=== PATIENT | female | born 1980 | race Caucasian/White ===

== ENCOUNTER 2017-06-25 10:04 | Emergency (ER) | payer SELFPAY ==
[2017-06-25] MEDS ORDERED: IBUP600T16 PO (10:23)
[2017-06-25 10:27] VITALS: BP 131/86
--- NOTE | 2017-06-25 10:29 | ED.ADGEN ---
Past History Past Medical History: Kidney Stones Past Surgical History: Other Alcohol Use: Occasionally Drug Use: Marijuana Adult General Chief Complaint Chief Complaint fever, cough, body aches HPI HPI Patient is a 36 year old female who presents with 2 days of body aches, fever yesterday, nasal congestion, cough. Pt took Tylenol yesterday x 1 for her fever. 2 known sick contacts last week with similar symptoms. She did not receive a flu shot. She denies feeling short of breath. No PCP, last menstrual cycle less than 2 weeks ago. Review of Systems Review of Systems Constitutional: fever Eyes: Denies change in visual acuity, redness, or eye pain [] HENT: per hpi Respiratory: Denies shortness of breath [] Cardiovascular: denies chest pain GI: Denies abdominal pain, nausea, vomiting, bloody stools or diarrhea [] : Denies dysuria or hematuria [] Musculoskeletal: generalized myalgias Integument: Denies rash or skin lesions [] Neurologic: Denies focal weakness or sensory changes [] Allergies Allergies Allergies Coded Allergies Type Severity Reaction Last Updated Verified codeine Allergy Unknown 06/25/17 Yes Physical Exam Physical Exam Constitutional: Well developed, well nourished, no acute distress, non-toxic appearance. [] HENT: Normocephalic, atraumatic, bilateral external ears normal, oropharynx slightly dry, no oral exudates, nose normal. [] Eyes: PERRLA, EOMI, conjunctiva normal, no discharge. [] Neck: Normal range of motion, no tenderness, supple, no stridor. no nuchal rigidity Cardiovascular:Heart rate 89 with regular rhythm, no murmur [] Lungs & Thorax: Bilateral breath sounds clear to auscultation, no wheeze, crackles or rhonchi Abdomen: soft, no tenderness, no masses, no pulsatile masses. [] Skin: Warm, dry, no erythema, no rash. [] Back: No tenderness, no CVA tenderness. [] Extremities: No tenderness, no cyanosis, no clubbing, ROM intact, no edema. [] Neurologic: Alert and oriented X 3, normal motor function, normal sensory function, no focal deficits noted. [] Psychologic: Affect normal, judgement normal, mood normal. [] Current Patient Data Vital Signs Vital Signs Date Time Temp Pulse Resp B/P (MAP) Pulse Ox O2 Delivery O2 Flow Rate FiO2 2/2/18 10:10 99.2 91 18 97 Room Air EKG EKG [] Radiology/Procedures Radiology/Procedures [] Course & Med Decision Making Course & Med Decision Making Pertinent Labs and Imaging studies reviewed. (See chart for details) VSS, pt not a tamiflu candidate, no indication to flu swab. Recommend push fluids, ibuprofen and Tylenol, RX for ibuprofen given. Return precautions given. Final Impression Final Impression Viral syndrome[] Problems: Dragon Disclaimer Dragon Disclaimer This electronic medical record was generated, in whole or in part, using a voice recognition dictation system. TERE HYLTON MD Jun 25, 2017 10:29
== END 2017-06-25 10:27 | disposition home or self-care (01) ==
LOC: ER 10:04
DX: B34.9 Viral infection, unspecified (principal); F12.10 Cannabis abuse, uncomplicated; Z87.442 Personal history of urinary calculi; Z88.5 Allergy status to narcotic agent
CPT/HCPCS: 99282

== ENCOUNTER 2019-03-17 17:44 | Emergency (ER) | payer BC ==
[~2019-03-17] VITALS: Ht 165.1 cm; Wt 57.6 kg
[~2019-03-17 17:44] MED LIST: IBUP600T16 PO
--- NOTE | 2019-03-17 17:54 | ED.ADGEN ---
Past History Past Medical History: Kidney Stones Past Surgical History: Other Alcohol Use: Occasionally Drug Use: Marijuana Adult General Chief Complaint Chief Complaint ". I hurting really bad the last hour or so.. very distended. ... I had armenian for lunch... about 1.. (1300).... HPI HPI Patient is a 38 year old female who presents with above hx and complaints of abd. distention with epigastric pain. Patient had a previous episode approximately a year ago and it was relieved with a GI cocktail. Patient rates her pain as 9-10 out of 10. Pain appears to be localized more in the epigastric area. No history of tarry stools. No history of specific ill contacts. No recent travel. No history immunosuppression. No history of trauma. Patient has had previous hernia surgery on right lower quadrant. Review of Systems Review of Systems Constitutional: Denies fever or chills [] Eyes: Denies change in visual acuity, redness, or eye pain [] HENT: Denies nasal congestion or sore throat [] Respiratory: Denies cough or shortness of breath [] Cardiovascular: No additional information not addressed in HPI [] GI: Rah to epigastric abdominal pain, nausea,. Denies vomiting, bloody stools o r diarrhea [] : Denies dysuria or hematuria [] Musculoskeletal: Denies back pain or joint pain [] Integument: Denies rash or skin lesions [] Neurologic: Denies headache, focal weakness or sensory changes [] Endocrine: Denies polyuria or polydipsia [] All other systems were reviewed and found to be within normal limits, except as documented in this note. Family History Family History Noncontributory Current Medications Current Medications Current Medications Medications (Trade) Dose Ordered Sig/Shasha Start Time Stop Time Status Last Admin Dose Admin Famotidine (Pepcid) 20 mg 1X ONCE 03/17/19 18:00 03/17/19 18:20 DC 03/17/19 18:11 20 MG Iohexol (Omnipaque 240 Mg/ml) 30 ml 1X ONCE 03/17/19 21:00 03/17/19 21:01 DC 03/17/19 21:57 30 ML Iohexol (Omnipaque 300 Mg/ml) 75 ml 1X ONCE 03/17/19 21:00 03/17/19 21:01 DC 10/25/19 21:56 75 ML Lactated Ringer's 1,000 ml @ 1,000 mls/hr Q1H 03/17/19 18:06 03/17/19 19:05 DC 03/17/19 18:33 1,000 MLS/HR Magnesium Hydroxide (Milk Of Magnesia) 2,400 mg 1X ONCE 03/17/19 18:00 03/17/19 18:20 DC 03/17/19 18:12 2,400 MG Morphine Sulfate (Morphine 10mg Syringe) 10 mg 1X ONCE 03/17/19 18:30 03/17/19 18:31 DC 03/17/19 18:36 10 MG Trimethoprim/ Sulfamethoxazole (Bactrim Ds) 1 tab 1X ONCE 03/17/19 19:30 03/17/19 19:31 DC 03/17/19 19:42 1 TAB Allergies Allergies Allergies Coded Allergies Type Severity Reaction Last Updated Verified codeine Allergy Unknown 06/25/17 Yes Physical Exam Physical Exam Constitutional: Well developed, well nourished, moderately acute distress, non-toxic appearance. [] HENT: Normocephalic, atraumatic, bilateral external ears normal, oropharynx moist, no oral exudates, nose normal. [] Eyes: PERRLA, EOMI, conjunctiva normal, no discharge. [] Neck: Normal range of motion, no tenderness, supple, no stridor. [] Cardiovascular:Heart rate regular rhythm, no murmur [] Lungs & Thorax: Bilateral breath sounds clear to auscultation [] Abdomen: Bowel sounds normal, soft, a gastric tenderness, distended, no masses, no pulsatile masses. Epigastric tenderness. and rebound to Rt. upper quadrant. Old surgery scars. Skin: Warm, dry, no erythema, no rash. [] Back: No tenderness, no CVA tenderness. [] Extremities: No tenderness, no cyanosis, no clubbing, ROM intact, no edema. [] No psoas sign. Neurologic: Alert and oriented X 3, normal motor function, normal sensory function, no focal deficits noted. [] Psychologic: Affect anxious, judgement normal, mood normal. [] Current Patient Data Vital Signs Vital Signs Date Time Temp Pulse Resp B/P (MAP) Pulse Ox O2 Delivery O2 Flow Rate FiO2 03/17/19 21:35 67 20 139/87 (104) 100 Room Air 03/17/19 17:50 97.9 Lab Results Laboratory Tests Test 03/17/19 18:10 03/17/19 18:17 03/17/19 18:29 Urine Collection Type Unknown Urine Color Yellow Urine Clarity Hazy Urine pH 7.0 Urine Specific [place] 1.020 Urine Protein Neg (NEG-TRACE) Urine Glucose (UA) Neg mg/dL (NEG) Urine Ketones (Stick) Neg mg/dL (NEG) Urine Blood Neg (NEG) Urine Nitrite Neg (NEG) Urine Bilirubin Neg (NEG) Urine Urobilinogen Dipstick 0.2 mg/dL (0.2 mg/dL) Urine Leukocyte Esterase Small (NEG) Urine RBC Occ /HPF (0-2) Urine WBC 5-10 /HPF (0-4) Urine Squamous Epithelial Cells Few /LPF Urine Bacteria Few /HPF (0-FEW) Urine Mucus Slight /LPF Urine Opiates Screen Neg (NEG) Urine Methadone Screen Neg (NEG) Urine Barbiturates Neg (NEG) Urine Phencyclidine Screen Neg (NEG) Urine Amphetamine/Methamphetamine Neg (NEG) Urine Benzodiazepines Screen Neg (NEG) Urine Cocaine Screen Neg (NEG) Urine Cannabinoids Screen Pos (NEG) Urine Ethyl Alcohol Neg (NEG) POC Urine HCG, Qualitative hcg negative (Negative) White Blood Count 6.1 x10^3/uL (4.0-11.0) Red Blood Count 4.72 x10^6/uL (3.50-5.40) Hemoglobin 12.0 g/dL (12.0-15.5) Hematocrit 37.2 % (36.0-47.0) Mean Corpuscular Volume 79 fL (79-100) Mean Corpuscular Hemoglobin 26 pg (25-35) Mean Corpuscular Hemoglobin Concent 32 g/dL (31-37) Red Cell Distribution Width 18.2 % (11.5-14.5) H Platelet Count 314 x10^3/uL (140-400) Neutrophils (%) (Auto) 57 % (31-73) Lymphocytes (%) (Auto) 32 % (24-48) Monocytes (%) (Auto) 9 % (0-9) Eosinophils (%) (Auto) 1 % (0-3) Basophils (%) (Auto) 1 % (0-3) Neutrophils # (Auto) 3.5 x10^3uL (1.8-7.7) Lymphocytes # (Auto) 2.0 x10^3/uL (1.0-4.8) Monocytes # (Auto) 0.6 x10^3/uL (0.0-1.1) Eosinophils # (Auto) 0.0 x10^3/uL (0.0-0.7) Basophils # (Auto) 0.0 x10^3/uL (0.0-0.2) Prothrombin Time 11.3 SEC (9.4-11.4) Prothrombin Time INR 1.1 (0.9-1.1) Activated Partial Thromboplast Time 25 SEC (23-33) Sodium Level 138 mmol/L (136-145) Potassium Level 3.6 mmol/L (3.5-5.1) Chloride Level 104 mmol/L (98-107) Carbon Dioxide Level 25 mmol/L (21-32) Anion Gap 9 (6-14) Blood Urea Nitrogen 13 mg/dL (7-20) Creatinine 0.7 mg/dL (0.6-1.0) Estimated GFR (Cockcroft-Gault) 93.6 Glucose Level 100 mg/dL (70-99) H Calcium Level 8.7 mg/dL (8.5-10.1) Total Bilirubin 0.2 mg/dL (0.2-1.0) Direct Bilirubin 0.1 mg/dL (0.0-0.2) Aspartate Amino Transferase (AST) 16 U/L (15-37) Alanine Aminotransferase (ALT) 18 U/L (14-59) Alkaline Phosphatase 53 U/L (46-116) Creatine Kinase 80 U/L (26-192) Troponin I Quantitative < 0.017 ng/mL (0-0.055) Total Protein 7.7 g/dL (6.4-8.2) Albumin 4.1 g/dL (3.4-5.0) Lipase 195 U/L (73-393) EKG EKG [] Radiology/Procedures Radiology/Procedures My interpretation of acute abdomen shows no acute cardiopulmonary findings. No free air in the diaphragm. Nonspecific bowel gas pattern. [][address] [address] IMAGING REPORT Signed PATIENT: DANIEL COLON ACCOUNT: [id number] : 1980 LOCATION: ER AGE: 38 SEX: F EXAM STATUS: REG ER ORD. PHYSICIAN: REHAN BULL MD REASON: Omni 300,75ml IV.Omni 240 30ml PO.Abd pain PROCEDURE: CT ABD PELV W/ORAL&IV CONTRAST CT scan of the abdomen and pelvis with contrast 03/17/2019 CLINICAL HISTORY: Abdominal pain and bloating. TECHNIQUE: After the oral and intravenous administration of contrast, contiguous, 5 mm axial sections were obtained through the abdomen and pelvis. 75 cc of Omnipaque 300 were administered intravenously during this examination. One or more of the following individualized dose reduction techniques were utilized for this study: 1. Automated exposure control. 2. Adjustment of the mA and/or kV according to patient size. 3. Use of iterative reconstruction technique. FINDINGS: Comparison is made to the patient's acute abdominal series performed earlier today. Images through the lung bases demonstrate minimal dependent subsegmental atelectasis bilaterally. The liver, spleen, pancreas, and adrenal glands are within normal limits. Rounded low-attenuation lesions are seen involving both kidneys. These likely represent cysts. These measure 5 mm to 1.3 cm in size. The abdominal aorta tapers normally. The gallbladder is well-distended. No free fluid or free air is seen within the abdomen. There is no evidence of bowel obstruction. Air and stool are seen throughout the colon. The appendix is well-visualized and is within normal limits. Images through the pelvis demonstrate the urinary bladder distended with urine. Calcifications are seen within the pelvis consistent with phleboliths. Prominent follicles are seen involving both ovaries. Nabothian cysts are seen within the cervix which measure 8 mm to 1.4 cm in size. No free fluid is seen. The osseous structures are grossly intact. IMPRESSION: No acute abnormality is seen. Electronically signed by: Jp Jones MD (03/17/2019 10:38 PM) [facility] DICTATED AND SIGNED BY: JP JONES MD DATE: 03/17/19 2238 CC: REHAN BULL MD; NERISSA LAI MD ~ Course & Med Decision Making Course & Med Decision Making Pertinent Labs and Imaging studies reviewed. (See chart for details) Pt. to remain on clear fluid diet only. No solids or milk products. Follow up with primary. Zantac 150 twice a day. Zofran 8 up 4 x day for active vomiting. Re- exam if no improvement. Follow up with primary. Return if any concerns. Bactrim twice a day x 7 days. Follow up urine cultures. [] Final Impression Final Impression 1. Abdomen pain[] 2. UTI Dragon Disclaimer Dragon Disclaimer This electronic medical record was generated, in whole or in part, using a voice recognition dictation system. Dragon Disclaimer This chart was dictated in whole or in part using Voice Recognition software in a busy, high-work load, and often noisy Emergency Department environment. It may contain unintended and wholly unrecognized errors or omissions. Dragon Disclaimer This chart was dictated in whole or in part using Voice Recognition software in a busy, high-work load, and often noisy Emergency Department environment. It may contain unintended and wholly unrecognized errors or omissions. REHAN BULL MD Mar 17, 2019 17:54
[2019-03-17] MEDS ORDERED: FAMOTIDINE 20 MG TABLET PO ONE (18:00)
[2019-03-17] MEDS ORDERED: MAGNESIUM HYDROXIDE 2,400 MG/30 ML ORAL.SUSP. PO ONE (18:00)
[2019-03-17] MEDS ORDERED: IV RINGERS SOLUTION,LACTATED 1,000 ML IV SCH (18:06)
--- NOTE | 2019-03-17 18:25 | EKG ---
[address] [address] Test Date: 2019-03-17 Test Time: 18:22:33 Pat Name: DANIEL COLON Department: Room: Gender: F Camp Attendant: LEORA : 1980 Requested By: REHAN BULL Order Number: [id number] Reading MD: Measurements Intervals [place] Rate: 70 P: 60 AK: 176 QRS: 72 QRSD: 76 T: 62 QT: 386 QTc: 420 Interpretive Statements SINUS RHYTHM LEFT ATRIAL ABNORMALITY ABNORMAL ECG RI6.01 No previous ECG available for comparison
[2019-03-17] MEDS ORDERED: MORPHINE SULFATE 10 MG/ML SYRINGE. SQ ONE (18:30)
[2019-03-17 18:35] LABS: BARBITURATES NEG (NEG); BENZODIAZEPINES NEG (NEG); CANNABINOIDS POS (NEG); COCAINE NEG (NEG); METHADONE NEG (NEG); OPIATES NEG (NEG); PHENCYCLIDINE NEG (NEG)
[2019-03-17 18:38] LABS: AMPHETAMINE/METHAMPHETAMINE NEG (NEG)
[2019-03-17 18:39] LABS: BILIRUBIN,URINE NEG (NEG); CLARITY,URINE HAZY; COLOR,URINE YELLOW; GLUCOSE,URINE NEG (NEG)
[2019-03-17 18:40] LABS: BACTERIA,URINE FEW /HPF (0-FEW); NITRITE,URINE NEG (NEG); RBC,URINE OCC /HPF (0-2); UROBILINOGEN,URINE 0.2 mg/dL (0.2 mg/dL)
[2019-03-17 18:41] LABS: SQUAMOUS EPITHELIAL CELL,UR FEW /LPF
[2019-03-17 18:46] LABS: BASO % 1 % (0-3); EOS % 1 % (0-3); HEMATOCRIT 37.2 % (36.0-47.0); LYMPH % 32 % (24-48); MEAN CORPUSCULAR HEMOGLOBIN 26 pg (25-35); MEAN CORPUSCULAR HGB CONC 32 g/dL (31-37); MEAN CORPUSCULAR VOLUME 79 fL (79-100); MONO # 0.6 x10^3/uL (0.0-1.1); MONO % 9 % (0-9); NEUT # 3.5 x10^3uL (1.8-7.7); NEUT % 57 % (31-73); PLATELET COUNT 314 x10^3/uL (140-400); RED BLOOD COUNT 4.72 x10^6/uL (3.50-5.40); RED CELL DISTRIBUTION WIDTH 18.2 % (11.5-14.5); WHITE BLOOD COUNT 6.1 x10^3/uL (4.0-11.0)
[2019-03-17 18:58] LABS: ALBUMIN 4.1 g/dL (3.4-5.0); CALCIUM 8.7 mg/dL (8.5-10.1); CREATININE 0.7 mg/dL (0.6-1.0); DIRECT BILIRUBIN 0.1 mg/dL (0.0-0.2); GFR 93.6; POTASSIUM 3.6 mmol/L (3.5-5.1); TOTAL BILIRUBIN 0.2 mg/dL (0.2-1.0); TOTAL PROTEIN 7.7 g/dL (6.4-8.2)
[2019-03-17] MEDS ORDERED: SMZ/TMP 800/160MG TABLET. PO ONE (19:30)
[2019-03-17] MEDS ORDERED: IOHEXOL 300 MG/ML 75 ML VIAL. IV ONE (21:00)
[2019-03-17] MEDS ORDERED: IOHEXOL 240 MG/ML 50ML VIAL. PO ONE (21:00)
[2019-03-17 21:35] VITALS: BP 139/87
--- NOTE | 2019-03-17 22:40 | RAD ---
CT scan of the abdomen and pelvis with contrast 03/17/2019 CLINICAL HISTORY: Abdominal pain and bloating. TECHNIQUE: After the oral and intravenous administration of contrast, contiguous, 5 mm axial sections were obtained through the abdomen and pelvis. 75 cc of Omnipaque 300 were administered intravenously during this examination. One or more of the following individualized dose reduction techniques were utilized for this study: 1. Automated exposure control. 2. Adjustment of the mA and/or kV according to patient size. 3. Use of iterative reconstruction technique. FINDINGS: Comparison is made to the patient's acute abdominal series performed earlier today. Images through the lung bases demonstrate minimal dependent subsegmental atelectasis bilaterally. The liver, spleen, pancreas, and adrenal glands are within normal limits. Rounded low-attenuation lesions are seen involving both kidneys. These likely represent cysts. These measure 5 mm to 1.3 cm in size. The abdominal aorta tapers normally. The gallbladder is well-distended. No free fluid or free air is seen within the abdomen. There is no evidence of bowel obstruction. Air and stool are seen throughout the colon. The appendix is well-visualized and is within normal limits. Images through the pelvis demonstrate the urinary bladder distended with urine. Calcifications are seen within the pelvis consistent with phleboliths. Prominent follicles are seen involving both ovaries. Nabothian cysts are seen within the cervix which measure 8 mm to 1.4 cm in size. No free fluid is seen. The osseous structures are grossly intact. IMPRESSION: No acute abnormality is seen. Electronically signed by: Jp Jones MD (03/17/2019 10:38 PM) [facility]
[2019-03-17] MEDS ORDERED: ONDA8TAB9 PO (23:05)
[2019-03-17] MEDS ORDERED: HYDR-1179 PO (23:05)
[2019-03-17] MEDS ORDERED: RANI-376 PO (23:05)
[2019-03-17] MEDS ORDERED: SULF1TAB24 PO (23:13)
--- NOTE | 2019-03-18 00:05 | RAD ---
Acute abdominal series to include a PA chest radiograph 03/17/2019 Clinical History: Abdominal pain with bloating since earlier this afternoon. A PA digital radiograph of the chest was obtained. Supine and erect AP digital radiographs of the abdomen/pelvis were obtained. The cardiac and mediastinal silhouettes are within normal limits in size and configuration. No pulmonary infiltrate is seen. No pleural effusion or pneumothorax is noted. The abdominal bowel gas pattern is nonobstructive. There is no evidence of free air. No radiopaque calculus is seen. Calcifications are seen within the pelvis consistent with phleboliths. The osseous structures are grossly intact. Impression: Nonobstructive bowel gas pattern. Electronically signed by: Jp Jones MD (03/18/2019 12:02 AM) [facility]
== END 2019-03-17 23:15 | disposition home or self-care (01) ==
LOC: ER 17:44
DX: N39.0 Urinary tract infection, site not specified (principal); Z87.442 Personal history of urinary calculi; Z88.5 Allergy status to narcotic agent
CPT/HCPCS: 36415; 74022; 74177; 80048; 80076; 80307; 81001; 81025; 82550; 83690; 84484; 85025; 85610; 85730; 87086; 93005; 96372; 99285; J2270; J7120; Q9966; Q9967

== ENCOUNTER 2019-07-11 16:17 | Emergency (ER) | payer BC ==
[~2019-07-11] VITALS: Ht 165.1 cm; Wt 54.9 kg
[~2019-07-11 16:17] MED LIST changes: +HYDR-1179 PO; +ONDA8TAB9 PO; +RANI-376 PO; +SULF1TAB24 PO
[2019-07-11 16:31] VITALS: BP 144/94
[2019-07-11 17:00] LABS: BASO % 1 % (0-3); EOS # 0.1 x10^3/uL (0.0-0.7); EOS % 1 % (0-3); HEMATOCRIT 40.2 % (36.0-47.0); HEMOGLOBIN 12.9 g/dL (12.0-15.5); LYMPH # 1.5 x10^3/uL (1.0-4.8); LYMPH % 30 % (24-48); MEAN CORPUSCULAR HEMOGLOBIN 27 pg (25-35); MEAN CORPUSCULAR HGB CONC 32 g/dL (31-37); MEAN CORPUSCULAR VOLUME 83 fL (79-100); MONO # 0.6 x10^3/uL (0.0-1.1); MONO % 12 % (0-9); NEUT # 2.9 x10^3uL (1.8-7.7); NEUT % 57 % (31-73); PLATELET COUNT 282 x10^3/uL (140-400); RED BLOOD COUNT 4.86 x10^6/uL (3.50-5.40); RED CELL DISTRIBUTION WIDTH 15.9 % (11.5-14.5); WHITE BLOOD COUNT 5.2 x10^3/uL (4.0-11.0)
[2019-07-11 17:10] LABS: CALCIUM 8.6 mg/dL (8.5-10.1); CREATININE 0.7 mg/dL (0.6-1.0); GFR 93.6; POTASSIUM 3.9 mmol/L (3.5-5.1)
[2019-07-11 17:18] LABS: ALBUMIN 3.9 g/dL (3.4-5.0); ALBUMIN/GLOBULIN RATIO 1.1 (1.0-1.7); TOTAL BILIRUBIN 0.2 mg/dL (0.2-1.0); TOTAL PROTEIN 7.5 g/dL (6.4-8.2)
--- NOTE | 2019-07-11 17:24 | RAD ---
ABDOMEN LTD History: Right upper quadrant abdominal pain. Comparison: CT March 17, 2019. Technique: Transabdominal ultrasound images are obtained of the right upper quadrant. Findings: Visualized pancreas is normal seen due to overlying bowel gas. Liver is normal in echogenicity. Portal flow is hepatopedal. Contracted gallbladder. Nonspecific calcifications within the gallbladder wall. No cholelithiasis. No gallbladder wall thickening. Common bile duct measures 7 mm in diameter. The right kidney measures 10.0 x 5.8 x 3.6 cm. No hydronephrosis. Nonobstructing right renal calculus measures 2.5 cm inferior pole. Patent IVC. IMPRESSION: 1. Contracted gallbladder. 2. Common bile duct upper limits of normal for size. 3. Nonobstructing right renal calculus. Electronically signed by: Eric Perez DO (07/11/2019 5:21 PM) [id number]
[2019-07-11 17:32] LABS: BACTERIA,URINE 0 /HPF (0-FEW); BILIRUBIN,URINE NEG (NEG); CLARITY,URINE CLEAR; COLOR,URINE YELLOW; GLUCOSE,URINE NEG (NEG); NITRITE,URINE NEG (NEG); RBC,URINE 0 /HPF (0-2); SQUAMOUS EPITHELIAL CELL,UR OCC /LPF; UROBILINOGEN,URINE 0.2 mg/dL (0.2 mg/dL); WBC,URINE 0 /HPF (0-4)
[2019-07-11] MEDS ORDERED: SUCR1TAB35 PO (17:41)
--- NOTE | 2019-07-11 17:41 | PHYS DOC ---
Past History Past Medical History: Kidney Stones, UTI Past Surgical History: Other Additional Past Surgical Histo: HERNIA Alcohol Use: Occasionally Drug Use: Marijuana Adult General Chief Complaint Chief Complaint: ABDOMINAL PAIN HPI HPI Patient is a 38-year-old female who presented to ER today for evaluation of right upper quadrant abdominal pain that radiated to her right shoulder started last night after she ate some fried chicken. Patient went to the urgent care today, they did x-ray her chest and checked her urine, diagnosed her with possible UTI and gastritis. sHe was prescribed Bactrim DS and omeprazole 40 mg daily. Patient was then told to come to ER here if her pain get worse. Patient decided to come in for evaluation. Patient denies any nausea vomiting. Patient denies any fever, no chest pain, no recent travel or operation. Patient was evaluated here last February for the same problem, CT scan of her abdomen and pelvic did not reveal any problem. She denies any trouble breathing, no history of blood clot disorder or history of diabetes. Review of Systems Review of Systems All other ROS is negative unless otherwise noted in HPI [positive for for abdominal pain, no chest pain , no shortness of air. Allergies Allergies Allergies Coded Allergies Type Severity Reaction Last Updated Verified codeine Allergy Unknown 06/25/17 Yes Physical Exam Physical Exam See above Constitutional: Well developed, well nourished, no acute distress, non-toxic appearance. [] HENT: Normocephalic, atraumatic, bilateral external ears normal, oropharynx moist, no oral exudates, nose normal. [] Eyes: PERRLA, EOMI, conjunctiva normal, no discharge. [] Neck: Normal range of motion, no tenderness, supple, no stridor. [] Cardiovascular:Heart rate regular rhythm, no murmur [] Lungs & Thorax: Bilateral breath sounds clear to auscultation [] Abdomen: Bowel sounds normal, soft, there is tenderness to palpation in epigastric area, no rebound, no guarding, no masses, no pulsatile masses. [] Skin: Warm, dry, no erythema, no rash. [] Back: No tenderness, no CVA tenderness. [] Extremities: No tenderness, no cyanosis, no clubbing, ROM intact, no edema. [] Neurologic: Alert and oriented X 3, normal motor function, normal sensory function, no focal deficits noted. [] Psychologic: Affect normal, judgement normal, mood normal. [] Current Patient Data Vital Signs Vital Signs Date Time Temp Pulse Resp B/P (MAP) Pulse Ox O2 Delivery O2 Flow Rate FiO2 07/11/19 16:31 98.4 77 16 144/94 (111) 98 Room Air Lab Results Laboratory Tests Test 07/11/19 16:39 White Blood Count 5.2 x10^3/uL (4.0-11.0) Red Blood Count 4.86 x10^6/uL (3.50-5.40) Hemoglobin 12.9 g/dL (12.0-15.5) Hematocrit 40.2 % (36.0-47.0) Mean Corpuscular Volume 83 fL (79-100) Mean Corpuscular Hemoglobin 27 pg (25-35) Mean Corpuscular Hemoglobin Concent 32 g/dL (31-37) Red Cell Distribution Width 15.9 % (11.5-14.5) H Platelet Count 282 x10^3/uL (140-400) Neutrophils (%) (Auto) 57 % (31-73) Lymphocytes (%) (Auto) 30 % (24-48) Monocytes (%) (Auto) 12 % (0-9) H Eosinophils (%) (Auto) 1 % (0-3) Basophils (%) (Auto) 1 % (0-3) Neutrophils # (Auto) 2.9 x10^3uL (1.8-7.7) Lymphocytes # (Auto) 1.5 x10^3/uL (1.0-4.8) Monocytes # (Auto) 0.6 x10^3/uL (0.0-1.1) Eosinophils # (Auto) 0.1 x10^3/uL (0.0-0.7) Basophils # (Auto) 0.0 x10^3/uL (0.0-0.2) Urine Collection Type Unknown Urine Color Yellow Urine Clarity Clear Urine pH 8.5 Urine Specific Mobile 1.020 Urine Protein Neg (NEG-TRACE) Urine Glucose (UA) Neg mg/dL (NEG) Urine Ketones (Stick) Neg mg/dL (NEG) Urine Blood Neg (NEG) Urine Nitrite Neg (NEG) Urine Bilirubin Neg (NEG) Urine Urobilinogen Dipstick 0.2 mg/dL (0.2 mg/dL) Urine Leukocyte Esterase Neg (NEG) Urine RBC 0 /HPF (0-2) Urine WBC 0 /HPF (0-4) Urine Squamous Epithelial Cells Occ /LPF Urine Bacteria 0 /HPF (0-FEW) Sodium Level 140 mmol/L (136-145) Potassium Level 3.9 mmol/L (3.5-5.1) Chloride Level 104 mmol/L (98-107) Carbon Dioxide Level 26 mmol/L (21-32) Anion Gap 10 (6-14) Blood Urea Nitrogen 14 mg/dL (7-20) Creatinine 0.7 mg/dL (0.6-1.0) Estimated GFR (Cockcroft-Gault) 93.6 BUN/Creatinine Ratio 20 (6-20) Glucose Level 77 mg/dL (70-99) Calcium Level 8.6 mg/dL (8.5-10.1) Total Bilirubin 0.2 mg/dL (0.2-1.0) Aspartate Amino Transferase (AST) 17 U/L (15-37) Alanine Aminotransferase (ALT) 25 U/L (14-59) Alkaline Phosphatase 58 U/L (46-116) Total Protein 7.5 g/dL (6.4-8.2) Albumin 3.9 g/dL (3.4-5.0) Albumin/Globulin Ratio 1.1 (1.0-1.7) Lipase 171 U/L (73-393) EKG EKG [] Radiology/Procedures Radiology/Procedures [][address] [address] IMAGING REPORT Signed PATIENT: DANIEL COLON ACCOUNT: [id number] : 1980 LOCATION: ER AGE: 38 SEX: F EXAM STATUS: REG ER ORD. PHYSICIAN: JOSE M PRIETO DO REASON: RUQ ABDOMINAL PAIN SINCE YESTERDAY PROCEDURE: ABDOMEN LTD ABDOMEN LTD History: Right upper quadrant abdominal pain. Comparison: CT March 17, 2019. Technique: Transabdominal ultrasound images are obtained of the right upper quadrant. Findings: Visualized pancreas is normal seen due to overlying bowel gas. Liver is normal in echogenicity. Portal flow is hepatopedal. Contracted gallbladder. Nonspecific calcifications within the gallbladder wall. No cholelithiasis. No gallbladder wall thickening. Common bile duct measures 7 mm in diameter. The right kidney measures 10.0 x 5.8 x 3.6 cm. No hydronephrosis. Nonobstructing right renal calculus measures 2.5 cm inferior pole. Patent IVC. IMPRESSION: 1. Contracted gallbladder. 2. Common bile duct upper limits of normal for size. 3. Nonobstructing right renal calculus. Electronically signed by: Eric Perez DO (07/11/2019 5:21 PM) [id number] DICTATED AND SIGNED BY: ERIC PEREZ DO DATE: 07/11/191720 CC: NERISSA LAI MD; JOSE M PRIETO DO ~ Course & Med Decision Making Course & Med Decision Making Pertinent Labs and Imaging studies reviewed. (See chart for details) Patient is a 38-year-old female who was evaluated in the ER due to epigastric abdominal pain, workup did not show that she had gallstone problem. Patient is suspected to Gastritis. Patient will be prescribed Carafate together with the omeprazole that doctor prescribed today. Patient will need to follow with her GI doctor for further evaluation. Patient had no evidence of UTI. Dragon Disclaimer Dragon Disclaimer This electronic medical record was generated, in whole or in part, using a voice recognition dictation system. Departure Departure: Impression: Primary Impression: Gastritis Disposition: 01 HOME, SELF-CARE Condition: STABLE Referrals: NERISSA LAI MD (PCP) FOLLOW UP WITH YOUR DOCTOR FOR A REFERRAL TO GI SPECIALIST NEXT WEEK Patient Instructions: Gastritis, Adult Additional Instructions: Thank you for visiting our Emergency Department. We appreciate you trusting us with your care. If any additional problems come up don't hesitate to return to visit us. Please follow up with your primary care provider so they can plan additional care if needed and know about the problem that you had. If symptoms worsen come back to the Emergency Department. Any concerning symptoms that start such as chest pain, shortness of air, weakness or numbness on one side of the body, running high fevers or any other concerning symptoms return to the ER. Scripts Sucralfate (CARAFATE) 1 Gm Tablet 1 TAB PO QID for GASTRITIS for 21 Days, #84 TAB 0 Refills Prov: JOSE M PRIETO DO 07/11/19 JOSE M PRIETO DO Jul 11, 2019 17:41
== END 2019-07-11 18:00 | disposition home or self-care (01) ==
LOC: ER 16:17
DX: K29.70 Gastritis, unspecified, without bleeding (principal); Z88.5 Allergy status to narcotic agent
CPT/HCPCS: 36415; 76705; 80053; 81001; 83690; 85025; 99284